=== PATIENT | female | born 1935 | race Caucasian/White ===

== ENCOUNTER 2018-02-25 07:21 | Inpatient (IN) | payer MEDICARE, MEDICAID ==
[2018-02-21 12:21] LABS: ABSOLUTE BASOPHILS 0.1 thou/uL (0.0-0.2); ABSOLUTE EOSINOPHILS 0.4 thou/uL (0.0-0.7); ABSOLUTE LYMPHOCYTES 1.7 thou/uL (0.8-5.3); ABSOLUTE MONOCYTES 0.9 thou/uL (0.0-1.2); ABSOLUTE NEUTROPHILS 6.3 thou/uL (1.6-8.1); BASOPHILS 0.9 %; HEMATOCRIT 32.2 % (37.0-47.0); HEMOGLOBIN 10.2 gm/dL (12.0-15.0); MCH 28.7 pg (26.0-34.0); MCHC 31.8 g/dL (28.0-37.0); MCV 90.2 fL (80.0-100.0); MONOCYTES 9.4 %; MPV 10.6 fl. (7.2-11.1); NUCLEATED RBCS 0 /100WBC; PLATELET COUNT* 214 thou/uL (150-400); POLYS 67.7 %; RBC 3.57 mil/uL (4.20-5.00); RDW-CV 18.5 % (10.5-14.5); WBC 9.3 thou/uL (4.0-11.0)
[2018-02-21 12:29] LABS: APTT 26.5 Seconds (25.0-31.3); INR 1.1; PROTIME 10.5 Seconds (9.20-11.50)
[2018-02-21 12:38] LABS: CALCIUM 9.2 mg/dL (8.5-10.1); CREATININE 1.6 mg/dL (0.6-1.3)
[2018-02-21 13:12] LABS: POTASSIUM 4.6 mmol/L (3.5-5.1)
[2018-02-21 13:13] LABS: TOTAL BILIRUBIN 0.4 mg/dL (<0.1-1.0)
[2018-02-21 13:14] LABS: TOTAL PROTEIN 6.8 g/dL (6.4-8.2)
[2018-02-21 13:15] LABS: ALBUMIN 3.1 g/dL (3.4-5.0)
[2018-02-21 13:23] LABS: ESR (SEDRATE) 62 mm/hr (0-30)
--- NOTE | 2018-02-21 16:05 | EKG ---
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
[2018-02-22 02:06] LABS: GLYCOHEMOGLOBIN (HGB A1C) 8.5 % (4.8-5.6)
[~2018-02-25] VITALS: Ht 167.6 cm; Wt 111.6 kg
[~2018-02-25 07:21] MED LIST: ACCUNEB SO1.25 MG/1 INH; ALLOPURINOL 10100 M1 PO; APAP650 PO; CALCIUM 600 +1 EAC1 PO; CARVEDILOL12.5 MG PO; CLARITIN10 MG PO; COLACE100 MG PO; COUMADIN 4 MG TA4 M1 PO; COZAAR 50 MG TA50 M2 PO; LANTUS100 UNIT/M SUBQ; LASIX 80 MG TAB80 MG PO; NOVOLOG100 UNIT/1 SUBQ; POTASSIUM20 PO; PROLOPRIM100 MG PO; SIMVASTATIN40 MG PO; SINGULAIR 10 MG10 M1 PO; SPIRIVA INH; TRAMADOL 50 MG50 MG PO; VITAMIN D2000 UNIT PO; ZANAFLEX4 MG PO
[2018-02-25 07:30] VITALS: BP 143/60
[2018-02-25 08:39] LABS: INR 1.1; PROTIME 10.3 Seconds (9.20-11.50)
[2018-02-25 15:20] VITALS: BP 121/44
[2018-02-25 21:00] VITALS: BP 149/70
[2018-02-25 23:43] VITALS: BP 147/66
[2018-02-26 04:13] LABS: HEMATOCRIT 28.4 % (37.0-47.0); HEMOGLOBIN 9.1 gm/dL (12.0-15.0); MCH 28.7 pg (26.0-34.0); MCHC 31.9 g/dL (28.0-37.0); MPV 11.3 fl. (7.2-11.1); RBC 3.16 mil/uL (4.20-5.00); WBC 9.6 thou/uL (4.0-11.0)
[2018-02-26 04:24] LABS: CALCIUM 8.5 mg/dL (8.5-10.1); CREATININE 1.8 mg/dL (0.6-1.3); POTASSIUM 4.4 mmol/L (3.5-5.1)
[2018-02-26 05:10] VITALS: BP 112/48
[2018-02-26 07:52] VITALS: BP 108/54
[2018-02-26 17:42] VITALS: BP 135/62
[2018-02-26 21:00] VITALS: BP 135/67
[2018-02-27] VITALS: BP 126/55
[2018-02-27 04:18] VITALS: BP 111/47
[2018-02-27 04:29] LABS: CREATININE 2.2 mg/dL (0.6-1.3)
[2018-02-27 04:31] LABS: POTASSIUM 6.5 mmol/L (3.5-5.1)
[2018-02-27 08:05] VITALS: BP 110/48
--- NOTE | 2018-02-27 10:16 | EKG ---
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
[2018-02-27 16:35] VITALS: BP 110/48
[2018-02-27 20:30] VITALS: BP 130/56
[2018-02-28] VITALS: BP 109/54
[2018-02-28 04:00] VITALS: BP 117/83
[2018-02-28 04:37] LABS: ALBUMIN 2.5 g/dL (3.4-5.0); CREATININE 2.2 mg/dL (0.6-1.3); MAGNESIUM 1.9 mg/dL (1.8-2.4); POTASSIUM 4.9 mmol/L (3.5-5.1); TOTAL BILIRUBIN 0.2 mg/dL (<0.1-1.0); TOTAL PROTEIN 5.8 g/dL (6.4-8.2)
[2018-02-28 08:15] VITALS: BP 137/70
[2018-02-28 11:28] VITALS: BP 115/53
[2018-02-28] MEDS ORDERED: PREDNISONE 10 M10 MG PO (11:50)
[2018-02-28] MEDS ORDERED: OXYCODONE HCL 55 MG PO (11:51)
--- NOTE | 2018-03-25 16:46 | OP ---
[address] [address] OPERATIVE REPORT Name: SEBASTIEN DUCKWORTH Room: [address]#: [id number] Admission: 02/25/18 Attend Phys: Shaista Gauthier Discharge: 02/28/18 Date of : 39 Report #: [id number] THIS REPORT FOR: //name// CC: Owen Hair DICTATED BY: Jose Daniel Gore DATE OF SERVICE: 02/25/2018 PREOPERATIVE DIAGNOSIS: Advanced degenerative joint disease, right first carpometacarpal joint. POSTOPERATIVE DIAGNOSIS: Advanced degenerative joint disease, right first carpometacarpal joint. PROCEDURE: Right first CMC suspension arthroplasty. SURGEON: Jose Hair DO ASSIST: Jose Daniel Gore DO SECOND ASSIST. Alfredo Lange DO ESTIMATED BLOOD LOSS: 20 mL. PREOPERATIVE ANTIBIOTICS: 2 grams Ancef IV prior to incision. TOURNIQUET TIME: Less than 90 minutes at 250 mmHg. IMPLANTS: Arthrex CMC Endobutton suspension system. COMPLICATIONS: None. SPECIMENS: None. DRAINS: None. CONDITION: The patient is stable to PACU. INDICATIONS: The patient is a pleasant 82-year-old female with longstanding right thumb pain. She has tried and failed nonoperative care including activity modification, oral anti-inflammatories and physical exercise regimen. She has had previous left CMC arthroplasty that has done quite well. X-rays show advanced joint space narrowing, osteophytic lipping with early subluxation of the first CMC joint. After discussing risks, benefits, complications, [place] [address] OPERATIVE REPORT Name: GUCCISEBASTIEN A Room: [address] IN .R.#: [id number] Admission: 02/25/18 Attend Phys: Shaista Gauthier Discharge: 02/28/18 Date of : 39 Report #: [id number] alternatives and indications to right first CMC arthroplasty including but not limited to bleeding, infection, neurovascular injury, continued pain, need for further surgery, subluxation, weakness, stiffness and the inherent risks of anesthesia she is willing to proceed. Consent is available in the chart. DESCRIPTION OF PROCEDURE: The patient was seen in preoperative holding area and the operative site initialed by the surgeon. She was brought back to operative suite, placed on the operating table in supine position. General anesthesia was induced. A well-padded tourniquet was placed on the right upper arm. The right upper extremity sterilely prepped and draped in normal fashion. Timeout was performed in usual fashion and all attendants were in agreement. Esmarch was used to exsanguinate the right upper extremity and tourniquet insufflated to 250 mmHg. A 15 blade scalpel was used to make approximately 2.5 cm incision over the first CMC joint dorsally. Blunt dissection was taken down through subcutaneous tissue, taking care to identify and retract the radial nerve sensory branches. The radial artery was identified and also retracted and protected. The first dorsal compartment was identified and a volar based flap release was performed. The CMC joint was identified and a 15 blade scalpel was used to incise this in line with the metacarpal. Full thickness flaps were elevated with the 15 blade scalpel. The trapezium was easily identified with extensive degenerative change here. A second incision was made at the base of the second metacarpal on the ulnar side. Blunt dissection was taken down to the periosteum. A 15 blade scalpel was used to make incision in the periosteum and an elevator used to elevate the second dorsal interosseous muscle. Blunt dissection was taken down on the radial side of the metacarpal as well. A K-wire national flatbed truck driver was then used to advance a K-wire at the base of the first metacarpal to the dorsal diaphyseal aspect of the second metacarpal. This was done utilizing fluoroscopic guidance for optimal positioning. The Endobutton with a #2 FiberWire was then advanced through this trajectory utilizing the nitinol wire suture passer. A second Endobutton was threaded over the FiberWire and provisionally tied and clamped. X-rays confirmed excellent position of this. Attention was then turned to the trapezium, which was released on all sides with a [place] blade. Due to soft tissue attachments, a rongeur was used to remove the trapezium piecemeal. X-rays confirmed adequate removal of bone. The FiberWire was then tightened further and this was checked for stability under fluoroscopic guidance. Live fluoroscopy was also utilized to ensure no subluxation. The thumb had full range of motion and good stability. The hand was able to lie on the table passively without deformity. Suture limbs were trimmed and the knot was buried below the dorsal interosseous muscle. The wounds were thoroughly irrigated with normal saline and a 2-0 Vicryl was used to close the deep fascia over both incisions. A pursestring suture was performed over the CMC joint capsule as well. Subcutaneous tissue was closed with a 3-0 Monocryl in simple inverted interrupted fashion followed by closing both incisions with a running 3-0 Stratafix on the skin and skin glue. Dressings were placed in the form of 4 x 4's, soft roll and a thumb spica splint with compressive Valdez wrap. Tourniquet was deflated. The patient was awoken and [facility] [address] [place] [address] OPERATIVE REPORT Name: SEBASTIEN DUCKWORTH Room: [address]#: [id number] Admission: 02/25/18 Attend Phys: Shaista Gauthier Discharge: 02/28/18 Date of : 39 Report #: [id number] brought to PACU in stable fashion. Sponge and needle counts were correct x 2. The patient tolerated the procedure well. Dr. Hair was present for all critical aspects of the surgery. <ELECTRONICALLY SIGNED> By: Jose Hair DO 03/25/18 1646 1310 [id number] Hair DO /nt
== END 2018-02-28 16:25 | DRG 506 ==
LOC: M.SUR 07:21 → M.ORTHSURG 15:42 → M.3W 02-27 08:05 → M.ORTHSURG 02-27 08:05 → M.3W 02-27 20:28
PROVIDERS: Orthopaedic Surgery; ADMIT Internal Medicine
PROC: 0RRS07Z Replacement of Right Carpometacarpal Joint with Autologous Tissue Substitute, Open Approach (ICD-10-PCS; principal; 2018-02-25)
DX: M18.11 Unilateral primary osteoarthritis of first carpometacarpal joint, right hand (principal); J96.21 Acute and chronic respiratory failure with hypoxia; E44.0 Moderate protein-calorie malnutrition; I13.0 Hypertensive heart and chronic kidney disease with heart failure and stage 1 through stage 4 chronic kidney disease, or unspecified chronic kidney disease; Z96.651 Presence of right artificial knee joint; M10.9 Gout, unspecified; J44.9 Chronic obstructive pulmonary disease, unspecified; I50.9 Heart failure, unspecified; I25.10 Atherosclerotic heart disease of native coronary artery without angina pectoris; E78.5 Hyperlipidemia, unspecified; N18.3 Chronic kidney disease, stage 3 (moderate); E11.22 Type 2 diabetes mellitus with diabetic chronic kidney disease; E87.5 Hyperkalemia; Z68.39 Body mass index [BMI] 39.0-39.9, adult; Z79.899 Other long term (current) drug therapy; Z88.8 Allergy status to other drugs, medicaments and biological substances; Z88.1 Allergy status to other antibiotic agents; Z91.040 Latex allergy status; Z86.73 Personal history of transient ischemic attack (TIA), and cerebral infarction without residual deficits; Z95.828 Presence of other vascular implants and grafts; Z86.718 Personal history of other venous thrombosis and embolism